=== PATIENT | male | born 1965 | race Caucasian/White ===

== ENCOUNTER 2024-04-30 12:13 | Outpatient (CLI) | payer OTHER ==
[~2024-04-30 12:13] MED LIST: Magnevist 469MG/ML 20 ML VIAL ONE
== END 2024-04-30 12:14 | disposition home or self-care (01) ==
LOC: CSHMRI 12:13
PROVIDERS: ATTEND Radiology Radiation Oncology
DX: C61 Malignant neoplasm of prostate (principal)
CPT/HCPCS: 72197; 82565; A9579